=== PATIENT | female | born 1970 | race Two or more races ===

== ENCOUNTER → 2019-12-26 | Outpatient (CLI) | payer OTHER | END | disposition home or self-care (01) | LOC: TOM 11:15 | PROVIDERS: ATTEND Colon & Rectal Surgery | DX: K50.90 Crohn's disease, unspecified, without complications (principal); R10.32 Left lower quadrant pain; K57.32 Diverticulitis of large intestine without perforation or abscess without bleeding ==

== ENCOUNTER 2023-07-09 08:00 | Outpatient (CLI) | payer OTHER ==
[~2023-07-09] VITALS: Ht 165.1 cm; Wt 87.1 kg
[2023-07-09] MEDS ORDERED: PEPCID AC10 MG PO (13:50)
== END 2023-07-09 08:01 | disposition home or self-care (01) ==
LOC: RAD 08:00 → ADM 08:00 → RAD 08:01 → ADM 12:15 → RAD 13:14 → CIR.AMB 07-16 07:00 → EDSTATUS 08-06 12:15 → CIR.AMB 08-06 12:15
PROVIDERS: ATTEND Colon & Rectal Surgery
DX: K64.2 Third degree hemorrhoids (principal); K64.4 Residual hemorrhoidal skin tags; K62.2 Anal prolapse; L91.0 Hypertrophic scar

== ENCOUNTER 2023-10-15 09:07 | Day surgery (SDC) | payer OTHER ==
[2023-10-12 13:29] LABS: HEMATOCRIT 39.6 % (36.0-45.00); HEMOGLOBIN 13.1 g/dL (12.0-15.00); MEAN CELL VOLUME 91.2 fL (80.00-100.00); MEAN CORPUSCULAR HEMOGLOBIN 30.2 pg (27.00-32.0); MEAN CORPUSCULAR HGB CONC 33.1 g/dl (32.0-36.0); PLATELET COUNT 240 K/uL (150-450); RED BLOOD COUNT 4.34 M/uL (4.00-6.00); RED CELL DISTRIBUTION WIDTH 13.4 % (11.5-14.5)
[2023-10-12 13:35] LABS: PH,URINE 7.5 (5.0-8.0); URINE APPEARANCE Clear; URINE BILIRRUBIN Negative (NEGATIVE); URINE BLOOD Negative; URINE COLOR Yellow; URINE GLUCOSE Negative (NEGATIVE); URINE KETONE Negative (NEGATIVE); URINE LEUKOCYTE Negative; URINE NITRATE Negative; URINE PROTEIN Negative (NEGATIVE); URINE UROBILINOGEN 0.2 E.U./dl
[2023-10-12 13:39] LABS: URINE BACTERIA 6311.2 uL (0.0-1933); URINE EPITHELIAL CELLS 44.9 uL (0.0-38.8); URINE RBC 7.3 uL (0.0-20.8)
[2023-10-12 13:47] LABS: URINE CAST 0.15 uL (0.0-1.40)
[2023-10-12 13:49] LABS: PARTIAL THROMBOPLASTIN TIME 31.7 SECONDS (22.0-34.0); PROTHROMBIN TIME 10.5 SECONDS (9.0-11.5)
[2023-10-12 14:09] LABS: BILIRUBIN TOTAL 0.41 mg/dL (0.3-1.2); CALCIUM 9.9 mg/dL (8.5-10.1); CREATININE SERUM 0.49 mg/dL (0.55-1.02); GFR 132.11; GLOBULINA 3.7 G/DL (2.4-3.5); POTASSIUM 5.04 mEq/L (3.5-5.1); TOTAL PROTEIN 7.7 gm/dL (6.4-8.2); TSH 0.903 uIU/mL (0.358-3.74)
[~2023-10-15] VITALS: Ht 165.1 cm; Wt 86.2 kg
[~2023-10-15 09:07] MED LIST: PEPCID AC10 MG PO; PROTONIX20 MG PO
[2023-10-15] MEDS ORDERED: METRONIDAZOLE/SODIUM CHLORIDE 500 MG/100 ML PIGGYBACK IV ONE (09:48)
[2023-10-15] MEDS ORDERED: HEMOSTATIC MATRIX 1 KIT KIT TOP ONE (12:58)
[2023-10-15] MEDS ORDERED: DIBUCAINE 30 GM TUBE ONE (13:02)
[2023-10-15] MEDS ORDERED: BUPIVACAINE LIPOSOME/PF 266 MG/20 ML VIAL IJ ONE (13:18)
[2023-10-15] MEDS ORDERED: POVIDONE-IODINE 118 ML BOTT TOP ONE ×2 (13:27→13:40)
[2023-10-15] MEDS ORDERED: TRIAMCINOLONE ACETONIDE 40 MG/ML VIAL ONE (13:42)
[2023-10-15] MEDS ORDERED: levoFLOXacin IN DEXTROSE 5 % 5 MG/ML PIGGYBAG IV ONE (14:00)
== END 2023-10-15 16:35 | disposition home or self-care (01) ==
LOC: CIR.AMB 09:07
PROVIDERS: ATTEND Colon & Rectal Surgery
DX: K64.2 Third degree hemorrhoids (principal); K64.4 Residual hemorrhoidal skin tags; K62.2 Anal prolapse; L91.0 Hypertrophic scar; Z88.0 Allergy status to penicillin; Z88.6 Allergy status to analgesic agent; Z91.02 Food additives allergy status; E06.3 Autoimmune thyroiditis; H40.9 Unspecified glaucoma